=== PATIENT | female | born 1995 | race African-American/Black ===

== ENCOUNTER 2016-12-20 22:44 | Emergency (ER) | payer MEDICAID, OTHER ==
[~2016-12-20 22:44] MED LIST: BACT800T5 PO; CLIN1CAP6 PO
[2016-12-20 22:45] VITALS: BP 148/79; PULSE 130; RESP 18; TEMP 98.3; O2SAT 99
[2016-12-20 22:54] VITALS: PULSE 105; RESP 20
[2016-12-20] MEDS ORDERED: SODIUM CHLOR 0.9% 1000 ML INJ 1,000 ML IV SCH (23:01)
[2016-12-20 23:05] VITALS: PULSE 152
--- NOTE | 2016-12-20 23:07 | PD ---
HPI Chief Complaint: Skin Problem Time Seen by Provider: 22:57 Travel History International Travel<30 days: No Contact w/Intl Traveler<30days: No Traveled to known affect area: No History of Present Illness HPI This patient was examined in the presence of a nurse. 21-year-old female presents for evaluation of pilonidal cyst. She reports pain and swelling in the pilonidal region which started this morning. She had a similar issue in September 2016 and she had incision and drainage performed here at that time. She denies fevers, chills, palpitations, chest pain, shortness of breath, lightheadedness, dizziness. Her last period was last week. She has no other complaints at this time. [facility] Past Medical History Diminished Hearing: No Social History Alcohol Use: No Tobacco Use: No Substance Use: No Allergies-Medications (Allergen,Severity, Reaction): Coded Allergies: Penicillin (Verified Allergy, Severe, 12/20/16) PEANUTS (Verified Allergy, Unknown, 12/20/16) Reported Meds & Prescriptions Reported Meds & Active Scripts Active No Active Prescriptions or Reported Medications Review of Systems Except as stated in HPI: all other systems reviewed are Neg Physical Exam Narrative GENERAL: Well-developed well-nourished female in no acute distress SKIN: Warm and dry. The patient has a 2 cm area of mild fluctuance in the pilonidal region. Old incision scars noted. There is no surrounding erythema. Or drainage. HEAD: Atraumatic. Normocephalic. EYES: Pupils equal and round. No scleral icterus. No injection or drainage. ENT: No nasal bleeding or discharge. Mucous membranes pink and moist. NECK: Trachea midline. No JVD. CARDIOVASCULAR: Regular rate and rhythm. No murmur appreciated. RESPIRATORY: No accessory muscle use. Clear to auscultation. Breath sounds equal bilaterally. Data Data Last Documented VS Vital Signs Date Time Temp Pulse Resp B/P Pulse Ox O2 Delivery O2 Flow Rate FiO2 12/20/16 23:05 152 12/20/16 22:54 20 12/20/16 22:45 98.3 148/79 99 Orders Ecg Monitoring (12/20/16 23:01) Sodium Chlor 0.9% 1000 Ml Inj (Ns 1000 M (12/20/16 23:01) Electrocardiogram (12/20/16 23:01) Lorazepam Inj (Ativan Inj) (12/20/16 23:15) Ketorolac Inj (Toradol Inj) (12/20/16 23:15) Lidocai-Epi 1%-1:100,000 Inj (Xylocaine- (12/20/16 23:15) Clindamycin Inj (Cleocin Inj) (12/21/16 00:00) MDM Medical Decision Making Medical Screen Exam Complete: Yes Emergency Medical Condition: Yes Medical Record Reviewed: Yes Interpretation(s) EKG reveals sinus tachycardia, rate 130. Differential Diagnosis Pilonidal abscess, cyst, cellulitis, anal fissure, perirectal abscess Narrative Course The patient appears to have a pilonidal cyst. I explained to the patient had incision and drainage can be performed here but ideally should follow up with a colorectal surgeon for definitive surgical repair of this issue as it has been recurrent at this point. In triage the patient was noted to be tachycardic with a heart rate of 130s. The patient be placed on ECG monitoring and an EKG 12-lead will be performed. Likely the patient's tachycardia is secondary to anxiety and pain in regards to her current situation. She does not appear septic. She denies any lightheadedness, dizziness, palpitations. She will be monitored closely. She verbally consents to incision and drainage. Previous wound culture from incision and drainage of pilonidal abscess in September grew out mixed anaerobes. 0020: Upon reexamination the patient is feeling better, she is feeling less anxious. Her heart rate is still in the 110-120 range. It is sinus tachycardia and she continues to be asymptomatic. I feel that the patient is stable for discharge. She is being encouraged to follow up with a colorectal surgeon for definitive cyst removal. Encouraged to follow up with her primary care physician as needed. Procedures Procedure Narrative INCISION AND DRAINAGE OF ABSCESS: The area was prepped and was sterilely draped. A subcutaneous wheal of 1% Xylocaine with epinephrine with a total number 5 mL was used to anesthetize the area. The area was properly anesthetized. A number 11 scalpel was used to make a 1 -cm incision across the area of the abscess. Diagnosis Primary Impression: Pilonidal abscess Referrals: Colon Rectal Specialist Additional Instructions: Follow up with a colorectal surgeon for definitive cyst removal. Take antibiotics as prescribed. Warm baths 2-3 times a day 10-15 minutes at a time. Return for new or worsening symptoms. Med/Other Pt SpecificInfo: Prescription(s) given, Wound Care Scripts Clindamycin 300 Mg [id number] Mg PO TID 7 Days Ref 0 Prov:Jose Espitia MD 12/21/16 Disposition: 01 DISCHARGE HOME Condition: Stable Alen Kinney Dec 20, 2016 23:07
[2016-12-20] MEDS ORDERED: LORazepam 2 MG/ML VIAL IV PUSH ONE (23:15)
[2016-12-20] MEDS ORDERED: KETOROLAC TROMETHAMINE 30 MG/ML (IVP) VIAL IV PUSH ONE (23:15)
[2016-12-20] MEDS ORDERED: LIDOCAINE 1%/EPINEPHrine 1:100,000 SOLN 20 ML VIAL INFIL ONE (23:15)
[2016-12-21] MEDS ORDERED: CLINDAMYCIN INJ 600 MG in SODIUM CHLORIDE 0.9% INJ 100 ML IV ONE ×2
[2016-12-21] MEDS ORDERED: CLIN1CAP6 PO (00:24)
--- NOTE | 2016-12-21 11:43 | EKG ---
Date Performed: 12/20/2016 Time Performed: 23:10:58 PTAGE: 21 years EKG: SINUS TACHYCARDIA NONSPECIFIC ST & T-WAVE ABNORMALITY ABNORMAL RHYTHM ECG NO PREVIOUS TRACING DOCTOR: Mustapha Telles Interpretating Date/Time 12/21/2016 11:41:18
== END 2016-12-21 01:02 | disposition home or self-care (01) ==
LOC: NEPB 22:44
DX: L05.91 Pilonidal cyst without abscess (principal); R00.0 Tachycardia, unspecified
CPT/HCPCS: 10080; 93005; 96361; 96365; 96375; 99283; J1885; J2060; J7030

== ENCOUNTER 2018-02-26 00:03 | Emergency (ER) | payer MEDICAID ==
[~2018-02-26 00:03] MED LIST changes: -BACT800T5 PO; -CLIN1CAP6 PO; +CLIN300C5 PO
[2018-02-26 00:16] VITALS: BP 130/71; PULSE 93; RESP 16; TEMP 97.6; O2SAT 100
[2018-02-26] MEDS ORDERED: ACETAMINOPHEN/HYDROcodone 325 MG/5 MG TAB PO ONE (01:15)
[2018-02-26] MEDS ORDERED: DOXYCYCLINE HYCLATE 100 MG CAP PO ONE (01:15)
[2018-02-26] MEDS ORDERED: SULFAMETHOXAZOLE-TRIMETHOPRIM DS 800-160 MG TAB PO ONE (01:15)
--- NOTE | 2018-02-26 01:17 | PD ---
HPI Chief Complaint: Lump, Cyst, Hernia Time Seen by Provider: 00:52 Travel History International Travel<30 days: No Contact w/Intl Traveler<30days: No Traveled to known affect area: No History of Present Illness HPI 22-year-old black female presents to emergency department with complains of a painful lump underneath her right axilla over last 2-3 days. Patient has had a history of hidradenitis and has had excision of her axillary lymph nodes. Patient states that she had recurrence after her surgery. She was last treated approximately one year ago in [place]. She had an incision and drainage performed at that time. She denies any fever or chills. Pain is moderate. No alleviating factors. PFSH Past Medical History Narrative Medical Hidradenitis Diminished Hearing: No Tetanus Vaccination: < 5 Years ?: Not LMP: 02/24/18 Past Surgical History Narrative Surgical Excision of axillary lymph nodes with skin grafting Social History Alcohol Use: Yes (OCC ) Tobacco Use: No Substance Use: No Allergies-Medications (Allergen,Severity, Reaction): Coded Allergies: penicillin G (Unverified Allergy, Severe, 02/26/18) peanut (Unverified Allergy, Unknown, 02/26/18) Reported Meds & Prescriptions Reported Meds & Active Scripts Active Clindamycin (Clindamycin HCl) 300 Mg Cap 300 Mg PO TID 7 Days Review of Systems Except as stated in HPI: all other systems reviewed are Neg Physical Exam Narrative GENERAL: This is a well-nourished, well-developed patient, in no apparent distress. SKIN: Patient has evidence of skin grafting in both axillas. Patient has a 1.5 x 1.5 cm tender nodular density at the superior aspect axilla. There is no fluctuance or pointing. This is tender to touch. HEAD: Atraumatic. Normocephalic. EYES: PERRL, EOMI, no discharge or injection. No scleral icterus. EARS: Clear NOSE: Nasal turbinates appear normal. THROAT: Mucosa pink and moist. Airway patent. NECK: Trachea midline. supple, moves head freely. LUNGS: Clear to auscultation. CV: Regular in rhythm. ABDOMEN: Soft nontender. EXT: No clubbing cyanosis or edema. Data Data Last Documented VS Vital Signs Date Time Temp Pulse Resp B/P (MAP) Pulse Ox O2 Delivery O2 Flow Rate FiO2 02/26/18 00:16 97.6 93 16 130/71 (90) 100 Orders Orders Acetamin-Hydrocod 325-5 Mg ([place] 5-325 (02/26/18 01:15) Sulfamet-Trimeth Ds 800-160 Mg (Bactrim (02/26/18 01:15) Doxycycline (Vibramycin) (02/26/18 01:15) Ed Discharge Order (02/26/18 01:05) MDM Medical Decision Making Medical Screen Exam Complete: Yes Emergency Medical Condition: Yes Medical Record Reviewed: Yes Differential Diagnosis MDM: High Differential diagnoses: Abscess, folliculitis, cellulitis, lymphangitis, abrasion, contact dermatitis Narrative Course An attempt at needle aspiration has been performed. Patient given hydrocodone 5 mg by mouth, doxycycline 100 mg by mouth, Bactrim DS by mouth. This is right axilla abscess, hidradenitis Procedures Procedure Narrative Needle aspiration right axilla abscess: The skin is prepped with Hibiclens. 1% lidocaine with epinephrine is injected locally. An 18-gauge needle is used to attempt to decompress the abscess. No purulent drainage expressed. It was noted that along the patient's incision line of her prior skin grafting was a small amount of purulent drainage along the edge of the wound. I do not believe that this is communicating. Diagnosis Primary Impression: right axilla abscess Additional Impression: hidradenitis Patient Instructions: Narcotic given in the ED, General Instructions Additional Instructions: Rest. Elevation. keep clean and dry. Warm compresses Daily wound care with soap, water and Neosporin. Doxycycline, Bactrim DS and diclofenac Follow-up with a primary care doctor in 3-5 days. Follow-up with a plastic surgeon or oil recovery unit operator within one week. Return to the ER for any problems. Med/Other Pt SpecificInfo: Prescription(s) given, Wound Care Disposition: DISCHARGE HOME Condition: Stable Noah Bravo Feb 26, 2018 01:16
[2018-02-26] MEDS ORDERED: BACT800T5 PO (01:30)
[2018-02-26] MEDS ORDERED: DOXY100C PO (01:30)
[2018-02-26] MEDS ORDERED: DICL75TA PO (01:30)
== END 2018-02-26 01:50 | disposition home or self-care (01) ==
LOC: NEPD 00:03
DX: L02.411 Cutaneous abscess of right axilla (principal); L73.2 Hidradenitis suppurativa
CPT/HCPCS: 10060